=== PATIENT | female | born 1975 | race Caucasian/White ===

== ENCOUNTER → 2016-08-13 | Outpatient (CLI) | payer OTHER ==
[~2016-08-13] MED LIST: ATEN-173 PO; EPP3/2 IM; LEVO1IUD PV; MULT-506 PO
[2016-08-14 20:57] LABS: CHLAMYDIA TRACH RNA*** NOT DETECTED (NOT DETECTED); GC (NEIS GONORRHOEAE)RNA** NOT DETECTED (NOT DETECTED)
== END | disposition home or self-care (01) ==
LOC: C.LABSPEC 13:47
PROVIDERS: ATTEND Obstetrics & Gynecology
DX: Z30.430 Encounter for insertion of intrauterine contraceptive device (principal)

== ENCOUNTER 2016-11-10 12:26 | Emergency (ER) | payer OTHER ==
[~2016-11-10] VITALS: Ht 165.1 cm; Wt 66.0 kg
[~2016-11-10 12:26] MED LIST changes: -LEVO1IUD PV
[2016-11-10 12:27] VITALS: TEMP 36.6; Ht 165.1 cm; Wt 66.0 kg
[2016-11-10] MEDS ORDERED: LEVO1IUD PV (13:32)
[2016-11-10 14:24] VITALS: BP 147/92; PULSE 67; O2SAT 100
--- NOTE | 2016-11-10 15:06 | EMERGENCY ROOM VISIT NOTE ---
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 She state she had just given an IM injection to the patient, when the patient moved and she stuck herself in the left 4th finger. She states she was wearing gloves at the time. It did break the skin and there was bleeding from her finger. Bleeding is now controlled. The wound was cleansed and covered with a bandaid. The source is known and agrees to having routine blood drawn per protocol. REVIEW OF SYSTEMS: A 6 system review of systems was completed with positives and pertinent negatives in the HPI. ALLERGIES: See chart MEDICATIONS: See chart PMH: See chart SOCIAL HISTORY: See chart PHYSICAL EXAM: Vital Signs: Reviewed Nurse's notes, vital signs stable. GENERAL : Pleasant and cooperative, in no acute distress, but appears to be in pain, well-developed, well-nourished. MUSCULOSKELETAL: There is no deformity of the left 4th finger. The patient has normal flexion and normal extension of the left 4th finger with intact strength to resistance. There is no tenderness. There is no laceration. Capillary refill less than 2 seconds. No tenderness of the remaining fingers or hand. Full range of motion of the wrist. NEURO: Alert and oriented to person, place, and time. Normal sensation to light and sharp touch. EMERGENCY DEPARTMENT COURSE: I examined the patient. Customary paperwork for accidental exposure was filled out and processed. Lab collection was performed. Patient instructed to follow up with [facility]. The patient was discharged in good condition. Medication Reconciliation: I attest that I have personally reviewed the patient' s current medication list. Blood pressure screening: The patient was found to have an elevated blood pressure and was referred to their primary doctor for recheck and further treatment. Patient was discussed with Dr. Hunter, who agrees with my assessment and disposition. Problem List Medical Problems: (1) Hypertension Status: Chronic (2) Sinus headache Status: Resolved (3) Vertigo Status: Resolved Current/Historical Medications Scheduled Atenolol (Tenormin), 25 MG PO BID Levonorgestrel (Iud) (Ling), 1 DOSE PV Q3MO Multivitamin (Multivitamin), 1 TAB PO DAILY Scheduled PRN Epinephrine (Epipen), 0.3 MG IM UD PRN for ALLERGIC REACTION Allergies Coded Allergies: Shellfish (Verified Allergy, Unknown, ANAPHYLAXIS, 10/19/15) Vital Signs Date Time Temp Pulse Resp B/P (MAP) Pulse Ox O2 Delivery O2 Flow Rate FiO2 11/10/16 14:24 67 18 147/92 100 11/10/16 12:27 36.6 68 16 157/108 100 Room Air Departure Information Impression Primary Impression: Needle stick injury of finger Dispostion Home / Self-Care Condition GOOD Referrals Fernando Marsh D.OChris (PCP) Forms WORK / SCHOOL INSTRUCTIONS, HOME CARE DOCUMENTATION FORM, IMPORTANT VISIT INFORMATION Patient Instructions ED Body Fluid Exp HC Worker, [employer] Additional Instructions Follow up with [facility] for results. Monitor for signs of infection to the finger. Follow up with PCP as needed. Problem Qualifiers Primary Impression: Needle stick injury of finger Encounter type: initial encounter Qualified Codes: S61.239A - Puncture wound without foreign body of unspecified finger without damage to nail, initial encounter; W27.3XXA - Contact with needle (sewing), initial encounter
== END 2016-11-10 14:25 | disposition home or self-care (01) ==
LOC: C.EDB 12:27 → C.EDD 14:25
DX: S60.949A Unspecified superficial injury of unspecified finger, initial encounter (principal); W46.0XXA Contact with hypodermic needle, initial encounter; I10 Essential (primary) hypertension; Z79.899 Other long term (current) drug therapy; Z91.018 Allergy to other foods

== ENCOUNTER → 2017-04-02 | Outpatient (CLI) | payer OTHER ==
[~2017-04-02] MED LIST changes: +LEVO1IUD PV
== END | disposition home or self-care (01) ==
LOC: C.PAPS 11:45
PROVIDERS: ATTEND Obstetrics & Gynecology
DX: Z01.419 Encounter for gynecological examination (general) (routine) without abnormal findings (principal)

== ENCOUNTER 2017-08-18 21:28 | Inpatient (IN) | payer OTHER ==
[~2017-08-18] VITALS: Ht 165.1 cm; Wt 64.7 kg
[2017-08-18] MEDS ORDERED: SODIUM CHLORIDE 0.9% 1000ML 1,000 ML IV STA ×2 (21:35)
[2017-08-18] MEDS ORDERED: ONDANSETRON INJ 2 MG/ML 2 ML VIAL IV STA (21:35)
[2017-08-18] MEDS ORDERED: OPTIRAY 320 IV PRN (21:45)
[2017-08-18] MEDS: HYDROmorphone INJ 0.5 MG/0.5 ML SYR IV PRN ×2 (21:48→23:07)
[2017-08-18 21:52] LABS: BASO % 0.1 %; BASO ABS # 0.01 K/uL (0-0.2); HEMATOCRIT 41.6 % (37-47); HEMOGLOBIN 14.4 g/dL (12.0-16.0); IG# 0.06 K/uL (0.00-0.02); LYMPH % 3.8 %; LYMPH ABS # 0.63 K/uL (1.2-3.4); MEAN CELL VOLUME 89.1 fL (80-100); MEAN CORPUSCULAR HEMOGLOBIN 30.8 pg (25-34); MEAN CORPUSCULAR HGB CONC 34.6 g/dl (32-36); MEAN PLATELET VOLUME 11.1 fL (7.4-10.4); MONO % 4.3 %; MONO ABS # 0.71 K/uL (0.11-0.59); NEUT % 91.4 %; NEUT ABS # 15.26 K/uL (1.4-6.5); PLATELET COUNT 204 K/uL (130-400); RED CELL DISTRIBUTION WIDTH CV 13.3 % (11.5-14.5); WHITE BLOOD COUNT 16.67 K/uL (4.8-10.8)
--- NOTE | 2017-08-18 21:58 | EMERGENCY ROOM VISIT NOTE ---
History Report prepared by Artie: Kim Garces Under the Supervision of: Ruth KenyonO. First contact with patient: 21:27 Chief Complaint: ABDOMINAL PAIN Stated Complaint: abdominal pain History of Present Illness The patient is a 42 year old female who presents to the Emergency Room with complaints of persistent lower quadrant abdominal pain that began earlier today. She reports that about 10 hours ago, she began experiencing some discomfort, which she thought was just gas. After being in the position for about 4 hours, the patient was able to have a loose bowel movement. She has been experiencing chills, vomiting, and increasing pain that radiates to her back. The patient currently rates her discomfort a 5 out of 10 in severity, noting that it comes and goes in spasms. She denies any blood or pain with urination, any blood in her stool, or a history of a urinary tract infection. The patient reports that she took Ibuprofen and Tylenol, which did not help relieve her symptoms. She has an IUD in place, noting that her last normal menstrual period was at the beginning of the month. Source of History: patient Onset: today Position: abdomen (lower quadrant) Symptom Intensity: 5/10 Quality: other (abdominal pain) Timing: other (persistent) Associated Symptoms: + chills, + vomiting Note: Associated symptoms include: loose bowel movement, increasing pain that radiates to her back. Patient denies any blood or pain with urination, or any blood in her stool. Review of Systems See HPI for pertinent positives & negatives. A total of 10 systems reviewed and were otherwise negative. Past Medical & Surgical Medical Problems: (1) Hypertension (2) Intractable left lower quadrant abdominal pain (3) Ovarian anomaly (4) Sinus headache (5) Vertigo Family History Patient reports no known family medical history. Social History Smoking Status: Never Smoker Smokeless Tobacco Use: No Alcohol Use: none Drug Use: none Marital Status: single Occupation Status: employed Current/Historical Medications Scheduled Atenolol (Tenormin), 25 MG PO BID Ciprofloxacin (Ciprofloxacin HCl), 500 MG PO BID Levonorgestrel (Iud) (Ling), 1 DOSE PV Q3MO Metronidazole (Flagyl), 500 MG PO TID Multivitamin (Multivitamin), 1 TAB PO DAILY Scheduled PRN Epinephrine (Epipen), 0.3 MG IM UD PRN for ALLERGIC REACTION Ketorolac Tromethamine (Toradol), 10 MG PO Q6H PRN for Pain Ondasetron Odt (Zofran Odt), 4 MG SL Q6H PRN for Nausea Allergies Coded Allergies: Shellfish (Verified Allergy, Unknown, ANAPHYLAXIS, 08/18/17) Physical Exam Vital Signs Date Time Temp Pulse Resp B/P (MAP) Pulse Ox O2 Delivery O2 Flow Rate FiO2 08/18/17 23:01 110 18 147/95 98 Room Air 08/18/17 22:22 102 18 121/96 96 Room Air 08/18/17 21:53 106 08/18/17 21:33 36.6 118 20 170/126 100 Room Air Physical Exam GENERAL: Patient is awake, alert, and in no acute distress. Patient appears very anxious and in significant pain EYES: The conjunctivae are clear. The pupils are round and reactive. EARS, NOSE, MOUTH AND THROAT: The nose is without any evidence of any deformity. Mucous membranes are moist tongue is midline NECK: The neck is nontender and supple. RESPIRATORY: Normal respiratory effort is noted there is no evidence of wheezing rhonchi or rales CARDIOVASCULAR: Tachycardic rate but regular rhythm noted there no murmurs rubs or gallops normal S1 normal S2 GASTROINTESTINAL: Abdomen is mildly distended and diffusively tendered. Guarding in both lower quadrants. BACK: No midline tenderness or or step-off noted range of motion in flexion extension as well as rotation no signs of muscle spasm noted MUSCULOSKELETAL/EXTREMITIES: There is no evidence of gross deformity full range of motion is noted in the hips and shoulders SKIN: There is no obvious evidence of any rash. There are no petechiae, pallor or cyanosis noted. NEUROLOGIC: Patient is awake alert and oriented x3 Medical Decision & Procedures ER Provider Diagnostic Interpretation: Radiology results as stated below per my review and radiologist interpretation: ABD/PELVIS IV CONTRAST ONLY CT DOSE: 317.93 mGy.cm HISTORY: Pelvic pain lower abd pain TECHNIQUE: Multiaxial CT images of the abdomen and pelvis were performed following the use of intravenous contrast. A dose lowering technique was utilized adhering to the principles of ALARA. COMPARISON STUDY: None. FINDINGS: Lung bases appear clear. Bilateral augmentation mammoplasties. Liver spleen and pancreas are unremarkable. Kidneys enhance uniformly. Several microcysts are present bilaterally. Graph the upper abdominal bowel pattern is nonobstructive. The appendix is normal. Several hyperemic loops of small bowel within the lower pelvis. An intrauterine device is present. 5 cm left ovarian cyst. 2.8 cm partially collapsed right ovarian cyst. Intrauterine device is present within the central canal of the uterus. IMPRESSION: 1. 5 cm left ovarian cyst. 2. Partially complex and/or partially collapsed 2.8 cm right ovarian cyst. 3. Nonobstructive bowel pattern. 4. Normal appendix. 5. Mild small bowel enteritis versus reactive ileus. The above report was generated using voice recognition software. It may contain grammatical, syntax or spelling errors. Electronically signed by: Phillip Dhillon M.D. 08/18/2017 10:44 PM Dictated Date/Time: 08/18/2017 10:41 PM CHEST ONE VIEW PORTABLE CLINICAL HISTORY: abd pain pain COMPARISON STUDY: 10/19/2015 FINDINGS: The bones soft tissues and hemidiaphragms are normal. The cardiomediastinal silhouette is normal. The lungs are clear. The pulmonary vasculature is normal. IMPRESSION: Negative chest. The above report was generated using voice recognition software. It may contain grammatical, syntax or spelling errors. Electronically signed by: Phillip Dhillon M.D. 08/18/2017 9:55 PM Dictated Date/Time: 08/18/2017 9:55 PM PELVIC ULTRASOUND CLINICAL HISTORY: Left ovarian cyst. Pelvic pain. COMPARISON STUDY: CT of the abdomen and pelvis August 18, 2017. TECHNIQUE: Transabdominal sonography of the pelvis was performed. FINDINGS: The uterus measures 6.3 x 4.8 x 3 cm. Intrauterine device appears appropriately positioned. Evaluation is suboptimal given lack of transvaginal imaging. The right ovary measures approximate 5.4 x 3.6 x 2.5 cm. Note is made of a 5 x 4.4 x 4.2 cm anechoic left ovarian lesion. Left ovarian tissue is obscured on this exam. Color flow is identified within each ovary. There is no free fluid. IMPRESSION: 1. 5 cm left ovarian cyst. 2. Color flow identified within each ovary. However, this does not exclude the possibility of ovarian torsion. Therefore, close clinical follow-up is recommended and gynecologic consultation could be obtained as indicated. Electronically signed by: Adrián Salcedo M.D. 08/19/2017 6:50 AM Dictated Date/Time: 08/19/2017 6:43 AM Laboratory Results Test 4/22/18 21:36 08/18/17 21:44 08/18/17 21:50 08/18/17 22:00 Total Bilirubin 1.2 mg/dl (0.2-1) Direct Bilirubin 0.2 mg/dl (0-0.2) Aspartate Amino Transf (AST/SGOT) 14 U/L (15-37) Alanine Aminotransferase (ALT/SGPT) 16 U/L (12-78) Alkaline Phosphatase 59 U/L (45-117) Total Protein 8.2 gm/dl (6.4-8.2) Albumin 4.0 gm/dl (3.4-5.0) Lipase 138 U/L (73-393) Bedside Hemoglobin 14.6 g/dl (12.0-16.0) Bedside Hematocrit 43 % (37-47) Bedside Sodium 137 mEq/L (135-144) Bedside Potassium 3.3 mEq/L (3.3-5.0) Bedside Chloride 100 mEq/L (101-112) Bedside Total CO2 24 mEq/l (24-31) Bedside Blood Urea Nitrogen 6 mg/dl (7-18) Bedside Creatinine 0.6 mg/dl (0.6-1.3) Bedside Glucose (other) 140 mg/dl (70-99) Bedside Ionized Calcium (Sonido) 1.15 mmol/l (1.12-1.32) Urine Color YELLOW Urine Appearance CLEAR (CLEAR) Urine pH 7.0 (4.5-7.5) Urine Specific [place] 1.004 (1.000-1.030) Urine Protein NEG (NEG) Urine Glucose (UA) NEG (NEG) Urine Ketones NEG (NEG) Urine Occult Blood NEG (NEG) Urine Nitrite NEG (NEG) Urine Bilirubin NEG (NEG) Urine Urobilinogen NEG (NEG) Urine Leukocyte Esterase SMALL (NEG) Urine WBC (Auto) 1-5 /hpf (0-5) Urine RBC (Auto) 0-4 /hpf (0-4) Urine Hyaline Casts (Auto) 0 /lpf (0-5) Urine Epithelial Cells (Auto) >30 /lpf (0-5) Urine Bacteria (Auto) 1+ (NEG) Urine Test NEG (NEG) Laboratory results per my review. Medications Administered Medications (Trade) Dose Ordered Sig/Nisha Route Start Time Stop Time Status Last Admin Dose Admin Ondansetron HCl (Zofran Inj) 4 mg NOW STAT IV 08/18/17 21:35 08/18/17 21:37 DC 08/18/17 21:47 4 MG Sodium Chloride 1,000 ml @ 999 mls/hr Q1H1M STAT IV 08/18/17 21:35 08/18/17 22:35 DC 08/18/17 21:47 999 MLS/HR Hydromorphone HCl (Dilaudid Inj) 0.5 mg Q30M PRN IV 08/18/17 21:45 08/19/17 00:43 DC 08/18/17 23:07 0.5 MG Sodium Chloride 1,000 ml @ 250 mls/hr Q4H STAT IV 08/18/17 21:35 08/19/17 00:42 DC 08/18/17 21:35 250 MLS/HR Piperacillin Sod/ Tazobactam Sod (Zosyn Iv) 4.5 gm NOW STAT IV 08/18/17 22:47 08/18/17 22:49 DC 08/18/17 23:00 4.5 GM ED Course 3: The patient was evaluated in room C8. A complete history and physical examination were performed. 5: Ordered Sodium Chloride 1000 ml @ 250 mls/hr IV, Sodium Chloride 1000 ml @ 999 mls/hr IV, and Zofran Inj 4mg IV. 2145: Ordered Ioversol 100ml IV and Dilaudid Inj 0.5 mg Iv. 2247: Ordered Zosyn IV 4.5 gm IV. 2249: I discussed the patient's case with Dr. Sanford, [facility]. The patient will be evaluated for further management. 2253: I reevaluated the patient, who was resting. Updated her on test findings and the treatment plan. She verbalized complete understanding and agreement. Medical Decision Prior records/ancillary studies reviewed. Triage Nursing notes reviewed. The patient's history was concerning for abdominal pain. Differential diagnosis: Etiologies such as appendicitis, diverticulitis, PUD, biliary pathology, UTI, pancreatitis, obstruction, mesenteric ischemia, aortic pathology, infections, inflammatory bowel disease, renal colic, as well as others were entertained. The patient is a 42-year-old female who presented to the emergency department with a rather acute onset of lower abdominal pain. The patient's physical exam was consistent with guarding and very significant abdominal pain. For this reason CT the abdomen and pelvis was obtained. The patient was treated with IV fluids IV pain medicine and IV anti-medics. On subsequent reevaluation she was feeling much better. The patient was found to have a large ovarian cyst noted on CAT scan. I discussed her case with the on-call [facility] hospitalist. They have agreed to evaluate the patient in the emergency department for further management and disposition. They did recommend further testing including ultrasound which was obtained to ensure this was not ovarian torsion. On reevaluation the patient was much more comfortable and I do not feel this is consistent with ovarian torsion at this time. I discussed the patient's laboratory and radiographic studies with her. Medication Reconcilliation Current Medication List: was personally reviewed by me Blood Pressure Screening Patient's blood pressure: Elevated blood pressure Blood pressure disposition: Referred to PCP (hospitalist) Consults Time Called: 2248 Consulting Physician: DIANE Gifford hospitalist Returned Call: 2248 I discussed the patient's case with DIANE Gifford- hospitalist. The patient will be evaluated for further management. Impression Primary Impression: Abdominal pain Additional Impression: Left ovarian cyst Scribe Attestation The scribe's documentation has been prepared under my direction and personally reviewed by me in its entirety. I confirm that the note above accurately reflects all work, treatment, procedures, and medical decision making performed by me. Departure Information Dispostion Being Evaluated By Hospitalist Prescriptions Metronidazole (FLAGYL) 500 Mg Tab 500 MG PO TID for 5 Days, #15 TAB Prov: Jie Varela PA-C 08/19/17 Ciprofloxacin (Ciprofloxacin HCl) 500 Mg Tab 500 MG PO BID for 5 Days, #10 TABS Prov: Jie Varela PA-C 08/19/17 Ketorolac Tromethamine (TORADOL) 10 Mg Tab 10 MG PO Q6H Y for Pain for 5 Days, #20 TAB Prov: Jie Varela PA-C 08/19/17 Ondasetron Odt (ZOFRAN ODT) 4 Mg Tab 4 MG SL Q6H Y for Nausea for 5 Days, #20 TAB Prov: Jie Varela PA-C 4/23/18 Referrals No Doctor, Assigned (PCP) Forms Call Back Authorization, HOME CARE DOCUMENTATION FORM, IMPORTANT VISIT INFORMATION Patient Instructions My [facility] Problem Qualifiers Primary Impression: Abdominal pain Abdominal location: lower abdomen, unspecified Qualified Codes: R10.30 - Lower abdominal pain, unspecified
[2017-08-18 21:59] LABS: ISTAT CREATININE 0.6 mg/dl (0.6-1.3); ISTAT IONIZED CALCIUM 1.15 mmol/l (1.12-1.32); ISTAT POTASSIUM 3.3 mEq/L (3.3-5.0)
[2017-08-18 22:08] LABS: CALCIUM 8.6 mg/dl (8.5-10.1); CREATININE 0.85 mg/dl (0.60-1.20); POTASSIUM 3.3 mmol/L (3.5-5.1)
[2017-08-18 22:11] LABS: TOTAL PROTEIN 8.2 gm/dl (6.4-8.2)
--- NOTE | 2017-08-18 22:45 | DIAGNOSTIC IMAGING REPORT ---
ABD/PELVIS IV CONTRAST ONLY CT DOSE: 317.93 mGy.cm HISTORY: Pelvic pain lower abd pain TECHNIQUE: Multiaxial CT images of the abdomen and pelvis were performed following the use of intravenous contrast. A dose lowering technique was utilized adhering to the principles of ALARA. COMPARISON STUDY: None. FINDINGS: Lung bases appear clear. Bilateral augmentation mammoplasties. Liver spleen and pancreas are unremarkable. Kidneys enhance uniformly. Several microcysts are present bilaterally. Graph the upper abdominal bowel pattern is nonobstructive. The appendix is normal. Several hyperemic loops of small bowel within the lower pelvis. An intrauterine device is present. 5 cm left ovarian cyst. 2.8 cm partially collapsed right ovarian cyst. Intrauterine device is present within the central canal of the uterus. IMPRESSION: 1. 5 cm left ovarian cyst. 2. Partially complex and/or partially collapsed 2.8 cm right ovarian cyst. 3. Nonobstructive bowel pattern. 4. Normal appendix. 5. Mild small bowel enteritis versus reactive ileus. The above report was generated using voice recognition software. It may contain grammatical, syntax or spelling errors. Electronically signed by: Phillip Dhillon M.D. 08/18/2017 10:44 PM Dictated Date/Time: 08/18/2017 10:41 PM
[2017-08-18] MEDS ORDERED: PIPERACILLIN/TAZOBACTAM 4.5 GM/100ML D5W IV STA (22:47)
--- NOTE | 2017-08-18 23:05 | History and Physical ---
History & Physical Date & Time of Service: Aug 18, 2017 at 23:05 Chief Complaint: abdominal pain Primary Care Physician: No Doctor, Assigned History of Present Illness Source: patient, family, hospital records The patient is a 42-year-old female who presents to the emergency department with the acute onset of left lower quadrant abdominal pain that began about 10 hours prior to arrival. She has been experiencing chills, vomiting, increasing abdominal pain radiating toward her back, with no improvement when she had a loose bowel movement about 6 hours ago. She also took ibuprofen and Tylenol without relief of her symptoms. She does have an IUD in place, and has had her last menstrual period was at the beginning of the month. She has not had any any recent travels or sick exposures, has not been on any antibiotics recently. Past Medical/Surgical History Medical Problems: (1) Hypertension (2) Near syncope (3) Needle stick injury of finger (4) Sinus headache (5) Vertigo Family History Hypertension Social History Smoking Status: Never Smoker Smokeless Tobacco Use: No Alcohol Use: socially Drug Use: none Marital Status: single Housing status: lives alone Occupational Status: employed Immunizations History of Influenza Vaccine: Yes History of Tetanus Vaccine?: Unknown History of Pneumococcal: No History of Hepatitis B Vaccine: Yes Allergies Coded Allergies: Shellfish (Verified Allergy, Unknown, ANAPHYLAXIS, 08/18/17) Home Medications Scheduled Atenolol (Tenormin), 25 MG PO BID Levonorgestrel (Iud) (Ling), 1 DOSE PV Q3MO Multivitamin (Multivitamin), 1 TAB PO DAILY Scheduled PRN Epinephrine (Epipen), 0.3 MG IM UD PRN for ALLERGIC REACTION Review of Systems The patient denies chest pain, palpitations, shortness of breath, dyspnea on exertion, cough, lower extremity swelling, sore throat, sweats, weight change, blood in urine or stool, dysuria, urinary frequency or urgency, lightheadedness, dizziness, headache, memory loss, loss of consciousness, rash, abnormal bruising or bleeding, imbalance, focal or generalized weakness, numbness or tingling in arms or legs, generalized arthralgias or myalgias, back or neck pain, or night sweats. The review of systems is otherwise negative other than for that already noted above, and at least 10 systems have been reviewed. Physical Exam Vital Signs Date Time Temp Pulse Resp B/P (MAP) Pulse Ox O2 Delivery O2 Flow Rate FiO2 08/18/17 23:01 110 18 147/95 98 Room Air 08/18/17 22:22 102 18 121/96 96 Room Air 08/18/17 21:53 106 08/18/17 21:33 36.6 118 20 170/126 100 Room Air The patient is awake, alert and oriented 3, well developed and well nourished, normocephalic and atraumatic, lying in bed and in mild to moderate distress secondary to abdominal/pelvic pain HEENT--PERRL, EOMI, mucous membranes and oropharynx dry. Neck--supple. No JVD. No bruits. Thyroid normal, trachea midline, no adenopathy. Heart--normal S1 and S2. No murmurs, rubs or gallops. Lungs--clear bilaterally, no respiratory distress, no accessory muscle use. Abdomen--normal bowel sounds and soft. Severe tenderness left lower quadrant to light palpation. Extremities--no cyanosis or clubbing. No edema. There are good distal pulses b/ l. Dermatologic--normal skin turgor, normal color, no abnormal lymph nodes, no rash. Neurologic--cranial nerves II through XII grossly intact. Rheumatologic--normal range of motion. Psychiatric--normal affect. Diagnostics Laboratory Results Results Past 24 Hours Test 08/18/17 21:36 08/18/17 21:44 08/18/17 21:50 08/18/17 22:00 Range/Units White Blood Count 16.67 4.8-10.8 K/uL Red Blood Count 4.67 4.2-5.4 M/uL Hemoglobin 14.4 12.0-16.0 g/dL Hematocrit 41.6 37-47 % Mean Corpuscular Volume 89.1 80-100 fL Mean Corpuscular Hemoglobin 30.8 25-34 pg Mean Corpuscular Hemoglobin Concent 34.6 32-36 g/dl Platelet Count 204 130-400 K/uL Mean Platelet Volume 11.1 7.4-10.4 fL Neutrophils (%) (Auto) 91.4 % Lymphocytes (%) (Auto) 3.8 % Monocytes (%) (Auto) 4.3 % Eosinophils (%) (Auto) 0.0 % Basophils (%) (Auto) 0.1 % Neutrophils # (Auto) 15.26 1.4-6.5 K/uL Lymphocytes # (Auto) 0.63 1.2-3.4 K/uL Monocytes # (Auto) 0.71 0.11-0.59 K/uL Eosinophils # (Auto) 0.00 0-0.5 K/uL Basophils # (Auto) 0.01 0-0.2 K/uL RDW Standard Deviation 43.0 36.4-46.3 fL RDW Coefficient of Variation 13.3 11.5-14.5 % Immature Granulocyte % (Auto) 0.4 % Immature Granulocyte # (Auto) 0.06 0.00-0.02 K/uL Sodium Level 135 136-145 mmol/L Potassium Level 3.3 3.5-5.1 mmol/L Chloride Level 103 98-107 mmol/L Carbon Dioxide Level 26 21-32 mmol/L Anion Gap 6.0 17.0 16-25 mmol/L Blood Urea Nitrogen 8 7-18 mg/dl Creatinine 0.85 0.60-1.20 mg/dl Est Creatinine Clear Calc Drug Dose 78.4 ml/min Estimated GFR () 98.6 Estimated GFR (Non- 85.1 BUN/Creatinine Ratio 8.8 10-20 Random Glucose 133 70-99 mg/dl Calcium Level 8.6 8.5-10.1 mg/dl Total Bilirubin 1.2 0.2-1 mg/dl Direct Bilirubin 0.2 0-0.2 mg/dl Aspartate Amino Transf (AST/SGOT) 14 15-37 U/L Alanine Aminotransferase (ALT/SGPT) 16 12-78 U/L Alkaline Phosphatase 59 45-117 U/L Total Protein 8.2 6.4-8.2 gm/dl Albumin 4.0 3.4-5.0 gm/dl Lipase 138 73-393 U/L Bedside Hemoglobin 14.6 12.0-16.0 g/dl Bedside Hematocrit 43 37-47 % Bedside Sodium 137 135-144 mEq/L Bedside Potassium 3.3 3.3-5.0 mEq/L Bedside Chloride 100 101-112 mEq/L Bedside Total CO2 24 24-31 mEq/l Bedside Blood Urea Nitrogen 6 7-18 mg/dl Bedside Creatinine 0.6 0.6-1.3 mg/dl Bedside Glucose (other) 140 70-99 mg/dl Bedside Ionized Calcium (Sonido) 1.15 1.12-1.32 mmol/l Urine Color YELLOW Urine Appearance CLEAR CLEAR Urine pH 7.0 4.5-7.5 Urine Specific [place] 1.004 1.000-1.030 Urine Protein NEG NEG Urine Glucose (UA) NEG NEG Urine Ketones NEG NEG Urine Occult Blood NEG NEG Urine Nitrite NEG NEG Urine Bilirubin NEG NEG Urine Urobilinogen NEG NEG Urine Leukocyte Esterase SMALL NEG Urine WBC (Auto) 1-5 0-5 /hpf Urine RBC (Auto) 0-4 0-4 /hpf Urine Hyaline Casts (Auto) 0 0-5 /lpf Urine Epithelial Cells (Auto) >30 0-5 /lpf Urine Bacteria (Auto) 1+ NEG Urine Test NEG NEG Diagnostic Radiology Patient Name: TIM PITT Unit Number: [id number] Dictated: 08/18/172154 Transcribed: 08/18/172154 MS Printed Date/Time: [~ rep prt dt]/[~ rep prt tm] [~ rep ct labl] - [~ rep ct ivnm] [facility] Radiology Department [place] [id number] Dictated: 08/18/172154 Transcribed: 08/18/172154 MS Printed Date/Time: [~ rep prt dt]/[~ rep prt tm] [~ rep ct labl] - [~ rep ct ivnm] [~ rep ct add3]] CHEST ONE VIEW PORTABLE CLINICAL HISTORY: abd pain pain COMPARISON STUDY: 10/19/2015 FINDINGS: The bones soft tissues and hemidiaphragms are normal. The cardiomediastinal silhouette is normal. The lungs are clear. The pulmonary vasculature is normal. IMPRESSION: Negative chest. The above report was generated using voice recognition software. It may contain grammatical, syntax or spelling errors. Electronically signed by: Phillip Dhillon M.D. 08/18/2017 9:55 PM Dictated Date/Time: 08/18/2017 9:55 PM The status of this report is Signed. Draft = Not yet reviewed or approved by Radiologist. Signed = Reviewed and approved by Radiologist. <AttendingPhy></AttendingPhy> <FamilyPhy>No Doctor, Assigned</FamilyPhy> < PrimaryPhy>No Doctor, Assigned</PrimaryPhy> <UnitNumber>[id number]</UnitNumber> <VisitNumber>[id number]</VisitNumber> <PatientName>TIM PITT</ PatientName> <DateOfBirth>1975</DateOfBirth> <Location>[facility]</Location> < ServiceDate>08/18/17</ServiceDate> <MNE>ESINDI</MNE> <OrderingPhy>Kartik Bhakta D.O.</OrderingPhy> <OrderingPhyMNE>f rep ord dr saldana</OrderingPhyMNE> <DictatingPhyMNE>f rep dict dr saldana</DictatingPhyMNE> <CCListMNE>f rep ct mne</ CCListMNE> <AdmittingPhyMNE>f pt admit dr saldana</AdmittingPhyMNE> <AttendingPhyMNE >f pt attend dr saldana</AttendingPhyMNE> <ConsultingPhyMNE>f pt consult dr saldana</ConsultingPhyMNE> <FamilyPhyMNE>f pt fam dr saldana</FamilyPhyMNE> <OtherPhyMNE>f pt other dr saldana</OtherPhyMNE> < PrimaryPhyMNE>f pt prim care dr saldana</PrimaryPhyMNE> <ReferringPhyMNE>f pt referring dr saldana</ReferringPhyMNE> Patient Name: TIM PITT Unit Number: [id number] Dictated: 08/18/172240 Transcribed: 08/18/172240 MS Printed Date/Time: [~ rep prt dt]/[~ rep prt tm] [~ rep ct labl] - [~ rep ct ivnm] [facility] [place] [place] [address] Dictated: 08/18/172240 Transcribed: 08/18/172240 MS Printed Date/Time: [~ rep prt dt]/[~ rep prt tm] [~ rep ct labl] - [~ rep ct ivnm] [~ rep ct add3]] ABD/PELVIS IV CONTRAST ONLY CT DOSE: 317.93 mGy.cm HISTORY: Pelvic pain lower abd pain TECHNIQUE: Multiaxial CT images of the abdomen and pelvis were performed following the use of intravenous contrast. A dose lowering technique was utilized adhering to the principles of ALARA. COMPARISON STUDY: None. FINDINGS: Lung bases appear clear. Bilateral augmentation mammoplasties. Liver spleen and pancreas are unremarkable. Kidneys enhance uniformly. Several microcysts are present bilaterally. Graph the upper abdominal bowel pattern is nonobstructive. The appendix is normal. Several hyperemic loops of small bowel within the lower pelvis. An intrauterine device is present. 5 cm left ovarian cyst. 2.8 cm partially collapsed right ovarian cyst. Intrauterine device is present within the central canal of the uterus. IMPRESSION: 1. 5 cm left ovarian cyst. 2. Partially complex and/or partially collapsed 2.8 cm right ovarian cyst. 3. Nonobstructive bowel pattern. 4. Normal appendix. 5. Mild small bowel enteritis versus reactive ileus. The above report was generated using voice recognition software. It may contain grammatical, syntax or spelling errors. Electronically signed by: Phillip Dhillon M.D. 08/18/2017 10:44 PM Dictated Date/Time: 08/18/2017 10:41 PM The status of this report is Signed. Draft = Not yet reviewed or approved by Radiologist. Signed = Reviewed and approved by Radiologist. <AttendingPhy></AttendingPhy> <FamilyPhy>No Doctor, Assigned</FamilyPhy> < PrimaryPhy>No Doctor, Assigned</PrimaryPhy> <UnitNumber>[id number]</UnitNumber> <VisitNumber>[id number]</VisitNumber> <PatientName>TIM PITT</ PatientName> <DateOfBirth>1975</DateOfBirth> <Location>[facility]</Location> < ServiceDate>08/18/17</ServiceDate> <MNE>ESINDI</MNE> <OrderingPhy>Kartik Bhakta D.O.</OrderingPhy> <OrderingPhyMNE>f rep ord dr saldana</OrderingPhyMNE> <DictatingPhyMNE>f rep dict dr saldana</DictatingPhyMNE> <CCListMNE>f rep ct mne</ CCListMNE> <AdmittingPhyMNE>f pt admit dr saldana</AdmittingPhyMNE> <AttendingPhyMNE >f pt attend dr saldana</AttendingPhyMNE> <ConsultingPhyMNE>f pt consult dr saldana</ConsultingPhyMNE> <FamilyPhyMNE>f pt fam dr saldana</FamilyPhyMNE> <OtherPhyMNE>f pt other dr saldana</OtherPhyMNE> < PrimaryPhyMNE>f pt prim care dr saldana</PrimaryPhyMNE> <ReferringPhyMNE>f pt referring dr saldana</ReferringPhyMNE> Impression Assessment and Plan Intractable left lower quadrant pain/5 cm ovarian cyst/ileus-- CT demonstrated above ovarian cyst. Pelvic ultrasound did identify some flow blood in the left ovary, but could not rule out left ovarian torsion. MRI of the pelvis with contrast has been ordered. Pending the results of the above testing, will either have patient seen by gynecology while in hospital, will have close follow-up in the outpatient setting. Dilaudid 0.5 mg IV every 2 hours as needed severe pain. Normal saline + KCl 20 mEq at 100 mils per hour to address mild hyponatremia and hypokalemia. Hypertension-- For now hold atenolol 25 mg p.o. twice daily. Placed on Lopressor 5 mg IV every 4 hours, hold for heart rate less than 60 or systolic blood pressure less than 120. Contraception-- IUD looks appropriately positioned on imaging studies. Advanced Directives Existing Advance Directive: No Existing Living Will: No Existing Power of Maintenance Supervisor: No Resuscitation Status VTE Prophylaxis Will order VTE Prophylaxis: Yes Social Service Consult None Apply
[2017-08-18] MEDS ORDERED: ACETAMINOPHEN 325 MG TAB PO PRN (23:15)
[2017-08-18] MEDS ORDERED: PIPERACILL/TAZOBAC CONSULT ACTIVE PRN (23:30)
[2017-08-18] MEDS ORDERED: PANTOprazole INJ 40 MG in SYRINGE 0 ML IV STA (23:37)
[2017-08-19] VITALS (7 sets, daily range): BP systolic 120–145; BP diastolic 73–102; PULSE 68–90; TEMP 36.7–37; O2SAT 96–100; Ht 165.1 cm; Wt 64.7 kg
[2017-08-19] MEDS: NSS + 20MEQ KCL 1000ML 1,000 ML IV SCH ×2 (00:59→10:54)
[2017-08-19] MEDS ORDERED: HYDROmorphone INJ 0.5 MG/0.5 ML SYR IV PRN (01:00)
[2017-08-19] MEDS: METOPROLOL TARTRATE 1 MG/ML VIAL IV. SCH ×4 (01:08→10:55)
[2017-08-19] MEDS ORDERED: GADAVIST IV PRN (02:45)
[2017-08-19] MEDS: ONDANSETRON INJ 2 MG/ML 2 ML VIAL IV PRN ×3 (02:47→15:00)
[2017-08-19] MEDS: PIPERACILL/TAZOBAC IV 3.375 GM in DEXTROSE 5% 100ML 100 ML IV SCH ×2 (04:17→10:54)
[2017-08-19 06:33] LABS: BASO % 0.1 %; BASO ABS # 0.01 K/uL (0-0.2); HEMOGLOBIN 11.2 g/dL (12.0-16.0); IG# 0.03 K/uL (0.00-0.02); LYMPH % 4.5 %; LYMPH ABS # 0.53 K/uL (1.2-3.4); MEAN CELL VOLUME 90.2 fL (80-100); MEAN CORPUSCULAR HEMOGLOBIN 29.7 pg (25-34); MEAN CORPUSCULAR HGB CONC 32.9 g/dl (32-36); MEAN PLATELET VOLUME 10.8 fL (7.4-10.4); MONO % 5.2 %; MONO ABS # 0.61 K/uL (0.11-0.59); NEUT % 89.9 %; NEUT ABS # 10.48 K/uL (1.4-6.5); PLATELET COUNT 186 K/uL (130-400); RED CELL DISTRIBUTION WIDTH CV 13.6 % (11.5-14.5); RED CELL DISTRIBUTION WIDTH SD 44.8 fL (36.4-46.3); WHITE BLOOD COUNT 11.66 K/uL (4.8-10.8)
--- NOTE | 2017-08-19 06:51 | DIAGNOSTIC IMAGING REPORT ---
PELVIC ULTRASOUND CLINICAL HISTORY: Left ovarian cyst. Pelvic pain. COMPARISON STUDY: CT of the abdomen and pelvis August 18, 2017. TECHNIQUE: Transabdominal sonography of the pelvis was performed. FINDINGS: The uterus measures 6.3 x 4.8 x 3 cm. Intrauterine device appears appropriately positioned. Evaluation is suboptimal given lack of transvaginal imaging. The right ovary measures approximate 5.4 x 3.6 x 2.5 cm. Note is made of a 5 x 4.4 x 4.2 cm anechoic left ovarian lesion. Left ovarian tissue is obscured on this exam. Color flow is identified within each ovary. There is no free fluid. IMPRESSION: 1. 5 cm left ovarian cyst. 2. Color flow identified within each ovary. However, this does not exclude the possibility of ovarian torsion. Therefore, close clinical follow-up is recommended and gynecologic consultation could be obtained as indicated. Electronically signed by: Adrián Salcedo M.D. 08/19/2017 6:50 AM Dictated Date/Time: 08/19/2017 6:43 AM
[2017-08-19 07:03] LABS: CALCIUM 7.3 mg/dl (8.5-10.1); CREATININE 0.65 mg/dl (0.60-1.20); POTASSIUM 3.6 mmol/L (3.5-5.1)
--- NOTE | 2017-08-19 07:14 | DIAGNOSTIC IMAGING REPORT ---
PELVIC COMBO CLINICAL HISTORY: 5cm left ovarian cyst. Severe pain, assess for ovarian torsion. COMPARISON STUDY: CT of the abdomen and pelvis and pelvic ultrasound August 18, 2017. TECHNIQUE: Utilizing a 1.5 [place] magnet and dedicated coil, multiplanar, multi echo imaging of the pelvis was performed pre and postcontrast administration. Injection of 6 cc of Gadavist IV was uneventful. FINDINGS: Intrauterine device is noted. This is appropriately positioned. A few follicles within the right ovary are noted. There is trace fluid within the pelvis. Note is made of a 5.5 x 4 cm T1 hyperintense, T2 hypointense left ovarian lesion which corresponds to the cystic lesion shown on prior ultrasound and CT. This inherent T1 hyperintensity makes evaluation for enhancement difficult but no solid component is identified. Multiple follicles within the left ovary are noted. The left ovary enhances. There is no significant twisting of the left ovarian pedicle. The left ovary is not significantly enlarged. The left ovarian stroma does not appear edematous. Visualized skeletal structures are unremarkable. There is no pelvic lymphadenopathy. Bladder is unremarkable. IMPRESSION: 1. 5.5 cm T1 hyperintense left ovarian lesion which favors a hemorrhagic cyst. An endometrioma could appear similar although is considered less likely given the findings on previous ultrasound. A follow-up pelvic ultrasound in 6 weeks to ensure resolution is recommended. Discussed with Dr. Flowers at time of dictation. 2. No MRI evidence for left ovarian torsion. If persistent severe pelvic pain, gynecologic consultation is recommended as ovarian torsion is difficult to completely exclude by imaging. However, no findings on this exam to suggest torsion. Electronically signed by: Adrián Salcedo M.D. 08/19/2017 7:13 AM Dictated Date/Time: 08/19/2017 6:51 AM
[2017-08-19] MEDS ORDERED: ACETAMINOPHEN IV 100 ML IV PRN (09:00)
[2017-08-19] MEDS: KETOROLAC TROMETHAMINE 30 MG/ML VIAL IV PRN ×2 (09:17→14:59)
--- NOTE | 2017-08-19 10:16 | GYNECOLOGICAL CONSULTATION ---
DATE OF CONSULTATION: 08/19/2017 [employer] consult HISTORY OF PRESENT ILLNESS: Patient is a 42-year-old G0, P0 white female who had presented to the Emergency Room following approximately 10 hours of left lower quadrant pain. The pain has become significantly worse despite taking ibuprofen and Tylenol. She did have one episode of diarrhea. The pain radiates into her back and into her groin somewhat at this point. Last menstrual period was at approximately 07/28/2017 and was considered normal. She does have Mirena IUD in place and this was placed in July 2016. She was noted on CT scan, MRI and ultrasound of her pelvis that she had had a normal uterus with an IUD in appropriate position. There is a resolving right ovarian cyst with the ovary measuring 5.4 x 3.6 x 2.5. The left ovary is noted to be replaced by an anechoic left ovarian cyst. The ovary measures 5 x 4.4 x 4.2. There is no free fluid in the abdomen. There is color flow going to both ovaries, which was documented both on the CT scan and on the MRI. Of note, on the CT scan there were several hyperemic loops of small bowel within the lower pelvis. Otherwise, a normal appendix and otherwise normal CT scan again documented in the presence of the bilateral ovarian cysts. Patient describes her pain at this point at 4-5 level. She is currently in the telemetry unit for observation because of her uncontrolled hypertension. She denies any fever or chills at this time and feels the pain is definitely better than when she first arrived. She is trying to avoid narcotics as she does not like the way they make her feel and is requesting Toradol for pain if she can have it. She did have an annual [employer] exam in March of 2017, which was normal with evidence of a stable vaginal cyst. Pap smear was within normal limits. On exam, lower abdomen is diffusely tender to deep palpation but no rebound. On pelvic exam the vaginal cyst is evident and posterior to the cervix, there is minimal cervical motion tenderness. She is somewhat "sore" with cervical motion. Uterus is mobile and appears to be nontender. She does have a fullness in the left lower quadrant which is tender but not exquisitely tender at this time. Right adnexa is within normal limits. ASSESSMENT AND PLAN: A 42-year-old who presents with acute onset of left lower quadrant pain with evidence of an anechoic cyst and evidence of blood flow to both of her ovaries so appears to be low risk for an ovarian torsion. She is having decreased pain. We did discuss that this was most likely a hemorrhagic cyst on her left ovary and would resolve on its own. If the pain continued to be significant and interfere with her daily activities then a surgical intervention would be considered. At this point we are going to observe, begin IV Toradol and IV acetaminophen as needed for pain and hopefully discharge her on oral meds as this should resolve over the next several days. We would recommend a followup ultrasound in 6 weeks to evaluate both of her ovaries.
[2017-08-19] MEDS ORDERED: PANTOprazole INJ 40 MG in SYRINGE 0 ML IV SCH (11:00)
[2017-08-19] MEDS ORDERED: KETO10TA PO ×2 (13:17→13:23)
[2017-08-19] MEDS ORDERED: METR500T PO ×2 (13:17→13:23)
[2017-08-19] MEDS ORDERED: CPR500 PO ×2 (13:17→13:23)
[2017-08-19] MEDS ORDERED: ONDA4TAB10 SL (13:22)
--- NOTE | 2017-08-19 13:30 | Discharge Instructions ---
Discharge Instructions Date of Service Aug 19, 2017. Admission Reason for Admission: Intractable Llq Abd Pain, Ovarian Anomaly Discharge Discharge Diagnosis / Problem: Ovarian Cyst Rupture Discharge Goals Goal(s): Decrease discomfort, Improve function, Increase independence Activity Recommendations Activity Limitations: resume your previous activity . Instructions / Follow-Up Instructions / Follow-Up LLQ Pain with Ovarian Cyst: - No evidence of torsion and good blood flow to both ovaries. - Your IUD looks in good placement without issue - Likely the inflammation with the bowels is either reactive or possible infectious and will complete a course of Cipro and Flagyl to cover GI bugs - Will give an Rx for Toradol to take PRN for pain - Dr. Patel recommending a repeat U/S in the next 6 weeks Current Hospital Diet Patient's current hospital diet: Clear Liquid Diet Discharge Diet Recommended Diet: Regular Diet Pending Studies Studies pending at discharge: no Medical Emergencies . Who to Call and When: Medical Emergencies: If at any time you feel your situation is an emergency, please call 911 immediately. . Non-Emergent Contact Non-Emergency issues call your: Primary Care Provider Call Non-Emergent contact if: you have a fever, your pain is concerning you, you have any medication questions . . "Provider Documentation" section prepared by Jie Varela. .
--- NOTE | 2017-08-19 17:52 | Discharge Summary ---
Discharge Summary Date of Service Aug 19, 2017. Discharge Summary Admission Date: Aug 18, 2017 at 23:13 Discharge Date: Aug 19, 2017 Discharge Disposition: Home Principal Diagnosis: L Hemorrhagic Ovarian Cyst Problems/Secondary Diagnoses: Medical Problems: (1) Hypertension (2) Intractable left lower quadrant abdominal pain (3) Near syncope (4) Needle stick injury of finger (5) Ovarian anomaly (6) Sinus headache (7) Vertigo Immunizations: Have You Had Influenza Vaccine: Yes History of Tetanus Vaccine?: Unknown History of Pneumococcal: No History of Hepatitis B Vaccine: Yes Procedures: PELVIC COMBO FINDINGS: Intrauterine device is noted. This is appropriately positioned. A few follicles within the right ovary are noted. There is trace fluid within the pelvis. Note is made of a 5.5 x 4 cm T1 hyperintense, T2 hypointense left ovarian lesion which corresponds to the cystic lesion shown on prior ultrasound and CT. This inherent T1 hyperintensity makes evaluation for enhancement difficult but no solid component is identified. Multiple follicles within the left ovary are noted. The left ovary enhances. There is no significant twisting of the left ovarian pedicle. The left ovary is not significantly enlarged. The left ovarian stroma does not appear edematous. Visualized skeletal structures are unremarkable. There is no pelvic lymphadenopathy. Bladder is unremarkable. IMPRESSION: 1. 5.5 cm T1 hyperintense left ovarian lesion which favors a hemorrhagic cyst. An endometrioma could appear similar although is considered less likely given the findings on previous ultrasound. A follow-up pelvic ultrasound in 6 weeks to ensure resolution is recommended. Discussed with Dr. Flowers at time of dictation. 2. No MRI evidence for left ovarian torsion. If persistent severe pelvic pain, gynecologic consultation is recommended as ovarian torsion is difficult to completely exclude by imaging. However, no findings on this exam to suggest torsion. Consultations: 1. Gynecology Medication Reconciliation New Medications: Ciprofloxacin (Ciprofloxacin HCl) 500 Mg Tab 500 MG PO BID for 5 Days, #10 TABS Ketorolac Tromethamine (Toradol) 10 Mg Tab 10 MG PO Q6H PRN for Pain for 5 Days, #20 TAB Metronidazole (Flagyl) 500 Mg Tab 500 MG PO TID for 5 Days, #15 TAB Ondasetron Odt (Zofran Odt) 4 Mg Tab 4 MG SL Q6H PRN for Nausea for 5 Days, #20 TAB Continued Medications: Atenolol (Tenormin) 25 Mg Tab 25 MG PO BID, TAB Epinephrine (Epipen) 0.3 Mg/0.3 Ml Inj 0.3 MG IM UD PRN for ALLERGIC REACTION Levonorgestrel (Iud) (Ling) 13.5 Mg Iud 1 DOSE PV Q3MO Multivitamin (Multivitamin) Tab 1 TAB PO DAILY, TAB Discharge Exam Review of Systems: Constitutional: No fever, No chills Respiratory: No cough, No shortness of breath Cardiovascular: No chest pain Abdomen: + pain (lower quadrants - improving), No nausea, No vomiting, No diarrhea, No constipation Musculoskeletal: No swelling, No calf pain Genitourinary - Female: No dysuria Hematologic / Lymphatic: No abnormal bleeding/bruising Physical Exam: General Appearance: WD/WN, no apparent distress Eyes: sclerae normal ENT: hearing grossly normal Neck: supple, no JVD, trachea midline Respiratory/Chest: lungs clear, normal breath sounds, no respiratory distress, no accessory muscle use Cardiovascular: regular rate, rhythm, no gallop, no murmur Abdomen / GI: normal bowel sounds, soft, + tenderness (with deep palpation of lower quadrants; no guarding or rigidity) Extremities: no pedal edema Neurologic/Psychiatric: alert, oriented x 3 Skin: normal color, warm/dry Hospital Course ADMISSION: The patient is a 42-year-old female who presents to the emergency department with the acute onset of left lower quadrant abdominal pain that began about 10 hours prior to arrival. She has been experiencing chills, vomiting, increasing abdominal pain radiating toward her back, with no improvement when she had a loose bowel movement about 6 hours ago. She also took ibuprofen and Tylenol without relief of her symptoms. She does have an IUD in place, and has had her last menstrual period was at the beginning of the month. She has not had any any recent travels or sick exposures, has not been on any antibiotics recently. HOSPITAL COURSE: Ms. Ruffin was admitted for LLQ Abdominal Pain associated with a L Hemorrhagic Cyst. Good blood flow noted to ovaries and low suspicion of ovarian torsion. Pain was better controlled with Toradol and will provide Rx for next 5 days as needed. She was initiated on Zosyn due to leukocytosis upon arrival which improved to 11.6. Likely this was in the setting of a reactive process however given given reports of rigors will complete a course of Abx. Imaging did show a mild enteritis vs reactive process. She is tolerating a regular diet and urinating and moving bowels without issue. As the day progressed pain became minimal. Patient will have F/U U/S in next 6 weeks to reassess. Patient is optimal for D/C home with Gyne F/U as outpatient. Attending Attestation - Pt seen/examined, chart reviewed, discharge care plan d/w TIESHA Varela. I agree w/ the marino components of her documentation. 42yo female with h/o HTN who presented with LLQ abdominal pain. Work-up ultimately led to the discovery of a suspected left-sided hemorrhagic ovarian cyst. She was seen in consult by Dr. Patel, ob-asp net c developer, who felt that the source of her pain was in fact the hemorrhagic ovarian cyst. Torsion of the ovary was felt to be unlikely. No other significant pathology of the abd/pelvis was seen on imaging studies. Her pain gradually improved during her brief stay and she will f/u with her primary ob-asp net c developer for surveillance of this issue as well as repeat u/s in 6 weeks as recommended by Dr. Patel. d/c to home with NSAIDs prn. Discharge exam - gen - NAD heart - RRR, s1, s2, no murmur lungs - CTA b/l abd - mild b/l lower quadrant tenderness, worse on left, but no peritoneal signs , no HSM, soft, BS+ ext - no edema Manjeet Cuevas MD Total Time Spent: Less than 30 minutes This includes examination of the patient, discharge planning, medication reconciliation, and communication with other providers. Discharge Instructions Please refer to the electronic Patient Visit Report (Discharge Instructions) for additional information. Additional Copies To Minerva Fox M.D.; Fernando Marsh D.O.
== END 2017-08-19 18:16 | disposition home or self-care (01) | DRG 761 ==
LOC: EDBD 21:28 → C.EDC 21:31 → C.2T 23:13 → ENRESERV 23:29
PROVIDERS: ADMIT Hospitalist; ATTEND Internal Medicine
DX: N83.202 Unspecified ovarian cyst, left side (principal); I10 Essential (primary) hypertension; Z97.5 Presence of (intrauterine) contraceptive device; N83.209 Unspecified ovarian cyst, unspecified side